=== PATIENT | female | born 1940 | race Caucasian/White ===

== ENCOUNTER 2020-08-27 11:55 | Inpatient (IN) | payer OTHER ==
[~2020-08-27] VITALS: Ht 165.1 cm; Wt 50.9 kg
[2020-08-27] MEDS ORDERED: TRAM50TA2 PO (12:09)
[2020-08-27] MEDS ORDERED: MORPHINE SULFATE 2 MG/1 ML DISP.SYRIN IV ONE ×2 (12:15→14:00)
[2020-08-27] MEDS ORDERED: IV NORMAL SALINE 1000 ML BAG IV ONE ×2 (12:15→18:15)
[2020-08-27] MEDS ORDERED: ONDANSETRON 4 MG/2 ML VIAL IV ONE ×2 (12:15→14:00)
[2020-08-27] MEDS ORDERED: ONDANSETRON 4 MG/2 ML VIAL ONE ×2 (12:17→14:09)
[2020-08-27] MEDS ORDERED: MORPHINE SULFATE 2 MG/1 ML DISP.SYRIN ONE ×2 (12:19→14:09)
[2020-08-27 13:29] LABS: BILIRUBIN,DIRECT 0.5 mg/dL (0.0-0.2); BILIRUBIN,TOTAL 1.1 mg/dL (0.2-1.0); TOTAL PROTEIN, SERUM 7.1 g/dL (6.4-8.2)
[2020-08-27 13:31] LABS: POTASSIUM 3.5 mmol/L (3.5-5.1)
[2020-08-27 13:55] LABS: BASOPHILS % (AUTO) 0.3 % (0.0-2.0); HEMATOCRIT 47.1 % (31.2-41.9); HEMOGLOBIN 14.5 g/dL (10.9-14.3); LYMPHOCYTES % (AUTO) 29.8 % (20.5-51.5); MEAN CORPUSCULAR HEMOGLOBIN 28.5 uug (24.7-32.8); MEAN CORPUSCULAR HGB CONC 31 g/dL (32.3-35.6); MEAN CORPUSCULAR VOLUME 92.8 fL (75.5-95.3); MONOCYTES # (AUTO) 0.7 K/uL (2.0-10.0); MONOCYTES % (AUTO) 4.4 % (0.0-11.0); NEUTROPHILS % (AUTO) 65.5 % (38.5-71.5); PLATELET COUNT (AUTO) 185 K/uL (179-408); RED BLOOD CELL COUNT(AUTO) 5.08 MIL/uL (3.63-4.92); WHITE BLOOD COUNT (AUTO) 16.7 K/uL (3.8-11.8)
--- NOTE | 2020-08-27 15:00 | NUR ---
[facility] AUTHORIZED THE PT TO BE ADMITTED HERE PER DR. ALMARAZ
--- NOTE | 2020-08-27 16:00 | NUR ---
DR. ALMARAZ LEFT A MESSAGE FOR DR. RIOS FOR UROLOGY CONSULT
--- NOTE | 2020-08-27 16:03 | NUR ---
ALBA WRIGHT, PT BROTHER CALLED AND GOT UPDATED.
[2020-08-27 16:11] LABS: *BILIRUBIN,URIN 1+ (NEGATIVE); *BLOOD, URINE 2+ (NEGATIVE); *CLARITY,URINE CLEAR (CLEAR); *COLOR,URINE YELLOW (YELLOW); *KETONES,URINE 4+ (NEGATIVE); LEUKOCYTE ESTERASE ,URINE NEGATIVE (NEGATIVE); NITRITE, URINE POSITIVE (NEGATIVE); PH,URINE 5.5 (5.0-8.0); UGLUCOSE 2+ (NEGATIVE)
--- NOTE | 2020-08-27 16:37 | NUR ---
DR MALIK CALLED BACK, TALKING TO ER MD, URO CONSULT.
[2020-08-27] MEDS ORDERED: CEFTRIAXONE 1 G in IV DEXTROSE 5% 50 ML IV STA (16:41)
[2020-08-27] MEDS ORDERED: KETOROLAC TROMETHAMINE 30 MG INJ IVP ONE (16:45)
[2020-08-27] MEDS ORDERED: KETOROLAC TROMETHAMINE 30 MG INJ ONE (16:53)
[2020-08-27] MEDS ORDERED: CEFTRIAXONE /D5W 50ML IVPB **ER PYXIS IV ONE (16:53)
[2020-08-27] MEDS ORDERED: ACETAMINOPHEN 325 MG TABLET PO PRN (18:15)
[2020-08-27] MEDS ORDERED: Z GUARD REMEDY PASTE 57 GM TUBE TOP PRN (18:15)
[2020-08-27] MEDS ORDERED: MAGNESIUM HYDROXIDE 30 ML LIQUID UDC PO PRN (18:15)
[2020-08-27] MEDS ORDERED: KETOROLAC TROMETHAMINE 15 MG INJ IM PRN (18:15)
[2020-08-27] MEDS ORDERED: VANCOMYCIN IV 1,000 MG in IV DEXTROSE 5% 250 ML IV SCH (18:45)
[2020-08-27] MEDS ORDERED: VANCOMYCIN IV 200 ML ONE (19:05)
[2020-08-27 20:13] LABS: BACTERIA,URINE FEW /HPF (NONE SEEN); SQUAMOUS EPITHELIAL CELL,UR FEW /HPF (NONE SEEN)
--- NOTE | 2020-08-27 20:47 | NUR ---
Patient will be going to room 309
--- NOTE | 2020-08-27 22:01 | NUR ---
Called and gave report to RN Will to admit patient to med-surg room 309.
--- NOTE | 2020-08-27 22:45 | NUR ---
ADMITTED PATIENT ON MED SURG FLOOR UNDER THE CARE OF DR. ZIMMERMAN. PATIENT ALERT ORIENTED ABLE TO MAKE NEEDS KNOW. PATIENT ASSISTED WITH TOILETING, NO COMPLAIN OF PAIN AT THIS TIME. CALL LIGHT WITHIN REACH.
--- NOTE | 2020-08-27 23:00 | NUR ---
Patient transported to [place] in stable condition.
[2020-08-27 23:24] VITALS: BP 109/70
[2020-08-27] MEDS: IV 1/2NS 1000 ML 1,000 ML IV PRN (23:33)
[2020-08-28 04:00] VITALS: BP 108/48
[2020-08-28] MEDS ORDERED: KETOROLAC TROMETHAMINE 30 MG INJ IM ONE (07:50)
[2020-08-28] MEDS ORDERED: ONDANSETRON 4 MG/2 ML VIAL IV ONE (07:50)
[2020-08-28] MEDS ORDERED: SEVOFLURANE 250 ML BOTTLE IH ONE (07:50)
[2020-08-28] MEDS ORDERED: ETOMIDATE 20 MG/10 ML VIAL MC ONE (07:50)
[2020-08-28] MEDS ORDERED: DEXAMETHASONE SOD PHOSPHATE 4 MG INJ IV ONE (07:50)
--- NOTE | 2020-08-28 08:00 | NUR ---
pt received awake, in her room, forgetful. IV NS running at 125cc/hour. side rails are up. Pt is reminded to use a call light when needs assistance. Pt is NPO.
[2020-08-28 08:04] LABS: BASOPHILS % (AUTO) 0.1 % (0.0-2.0); HEMATOCRIT 37.5 % (31.2-41.9); HEMOGLOBIN 12.4 g/dL (10.9-14.3); LYMPHOCYTES # (AUTO) 9.2 K/uL (20.0-40.0); MEAN CORPUSCULAR HEMOGLOBIN 29.2 uug (24.7-32.8); MEAN CORPUSCULAR HGB CONC 33 g/dL (32.3-35.6); MEAN CORPUSCULAR VOLUME 87.9 fL (75.5-95.3); MONOCYTES # (AUTO) 1.6 K/uL (2.0-10.0); NEUTROPHILS # (AUTO) 12.7 K/uL (1.8-8.9); NEUTROPHILS % (AUTO) 53.9 % (38.5-71.5); PLATELET COUNT (AUTO) 184 K/uL (179-408); RED BLOOD CELL COUNT(AUTO) 4.26 MIL/uL (3.63-4.92); WHITE BLOOD COUNT (AUTO) 23.6 K/uL (3.8-11.8)
[2020-08-28 08:10] LABS: BILIRUBIN,TOTAL 0.6 mg/dL (0.2-1.0); CREATININE 0.8 mg/dL (0.6-1.3); MAGNESIUM 1.7 mg/dL (1.8-2.4); POTASSIUM 3.7 mmol/L (3.5-5.1); TOTAL PROTEIN, SERUM 5.4 g/dL (6.4-8.2)
[2020-08-28] MEDS: MAGNESIUM SULFATE/D5W 100 ML IV SCH ×2 (10:53→18:38)
[2020-08-28] MEDS: IV 1/2NS 1000 ML 1,000 ML IV PRN (11:08)
[2020-08-28 11:54] VITALS: BP 111/57
--- NOTE | 2020-08-28 12:00 | NUR ---
Patient's IV site is noted to be leaking. Pt states it hurts when flushed. Unable to start a new IV, midline is requested.
--- NOTE | 2020-08-28 15:00 | NUR ---
Pt c/o generalized pain and overall discomfort and feeling "not well". Pt states she has pain "all over, including her back and abd." PRN Tarodol 15mg IM was given at 1435. Pt is noted to be resting in bed, dozing off, no distress. Medication was effective.
[2020-08-28] MEDS ORDERED: METHYLENE BLUE 50 MG/10 ML AMPUL (0.5%) ONE (15:07)
[2020-08-28] MEDS: ONDANSETRON 4 MG/2 ML VIAL IV PRN ×2 (15:22→22:47)
[2020-08-28 15:42] VITALS: BP 148/58
--- NOTE | 2020-08-28 16:00 | NUR ---
Pt is c/o nausea. PRN Zofran 4 mg IV was given at 1522. Pt states she feels somewhat better. prn was effective..
--- NOTE | 2020-08-28 16:05 | NUR ---
Patient picked up for surgery, no distress.
[2020-08-28] MEDS ORDERED: MIDAZOLAM HCL 2 MG/2 ML VIAL ONE (16:14)
[2020-08-28] MEDS ORDERED: FLUMAZENIL 0.5 MG/5 ML VIAL ONE (16:33)
[2020-08-28] MEDS ORDERED: CEFTRIAXONE 1 G in IV DEXTROSE 5% 50 ML IV SCH (17:00)
--- NOTE | 2020-08-28 18:20 | NUR ---
pt returned from surgery. Pt is calm, appears asleep. IV 1/2 NS running at 125cc/hr. Report received. No distress. vs stable.
--- NOTE | 2020-08-28 19:00 | NUR ---
Rec'd pt. in bed, anxious to get out of the bed to go to bathroom. Assisted pt., voided freely well. Kept dry and clean. Midline on left upper arm patent and intact. IV of 1/2 NS infusing at 125 ml/hr. Safety measures implemented. No complaints presented. VS stable. Monitored closely for safety and comfort.
[2020-08-28 20:00] VITALS: BP 140/69
--- NOTE | 2020-08-28 22:41 | NUR ---
Pt. was found moaning, groaning and stated feeling of nausea. Medicated with Toradol and Zofran as ordered.
[2020-08-28] MEDS: KETOROLAC TROMETHAMINE 15 MG INJ IVP PRN (22:47)
--- NOTE | 2020-08-28 23:47 | NUR ---
Pt. resting in bed. No complaints presented. No acute distress.
[2020-08-29] MEDS: IV 1/2NS 1000 ML 1,000 ML IV PRN ×3 (00:59→17:44)
[2020-08-29 04:00] VITALS: BP 150/71
--- NOTE | 2020-08-29 07:30 | NUR ---
pt resting in bed, IVF infusing. on room air. bed alarm on, bed in low and locked position, fall precautions in place.
--- NOTE | 2020-08-29 07:50 | NUR ---
SOUND ASLEEP IN BED, 2RAILS UP ON BOTH SIDES, BED ALARM ON, CONTINUE TO MONITOR CONDITION,
[2020-08-29 08:00] VITALS: BP 149/79
[2020-08-29 08:32] LABS: BASOPHILS % (AUTO) 0.2 % (0.0-2.0); EOSINOPHILS % (AUTO) 0.1 % (0.0-7.0); HEMATOCRIT 41.5 % (31.2-41.9); HEMOGLOBIN 13.4 g/dL (10.9-14.3); LYMPHOCYTES # (AUTO) 8.4 K/uL (20.0-40.0); LYMPHOCYTES % (AUTO) 37.4 % (20.5-51.5); MEAN CORPUSCULAR HEMOGLOBIN 28.4 uug (24.7-32.8); MEAN CORPUSCULAR HGB CONC 32 g/dL (32.3-35.6); MEAN CORPUSCULAR VOLUME 87.7 fL (75.5-95.3); MONOCYTES # (AUTO) 1.2 K/uL (2.0-10.0); MONOCYTES % (AUTO) 5.3 % (0.0-11.0); NEUTROPHILS # (AUTO) 12.8 K/uL (1.8-8.9); PLATELET COUNT (AUTO) 196 K/uL (179-408); RED BLOOD CELL COUNT(AUTO) 4.73 MIL/uL (3.63-4.92); WHITE BLOOD COUNT (AUTO) 22.4 K/uL (3.8-11.8)
[2020-08-29] MEDS: ONDANSETRON 4 MG/2 ML VIAL IV PRN ×2 (09:57→17:38)
[2020-08-29] MEDS: KETOROLAC TROMETHAMINE 15 MG INJ IVP PRN (09:58)
--- NOTE | 2020-08-29 10:00 | NUR ---
Complained of abdominal pain and nausea. Toradol and Zofran given as ordered, wit relief
[2020-08-29 11:00] VITALS: BP 153/83
[2020-08-29] MEDS ORDERED: PIPERACILLIN SODIUM/TAZOBACTAM 4.5 G in IV DEXTROSE 5% 50 ML IV ONE (12:00)
--- NOTE | 2020-08-29 14:00 | NUR ---
resting in bed, denies pain
[2020-08-29 16:15] VITALS: BP 139/70
--- NOTE | 2020-08-29 18:17 | NUR ---
complained of nausea, zofran given with relief. pt still refused to eat dinner, pt has poor intake. IVF infusing. Fall precautions in place, bed in low and locked position, bed alarm on, call light within reach.
[2020-08-29] MEDS: PIPERACILLIN SODIUM/TAZOBACTAM 3.37 G in IV DEXTROSE 5% 100 ML IV SCH (20:56)
[2020-08-29 21:11] VITALS: BP 135/72
[2020-08-30] MEDS: ONDANSETRON 4 MG/2 ML VIAL IV PRN (03:13)
[2020-08-30] MEDS: KETOROLAC TROMETHAMINE 15 MG INJ IVP PRN (03:13)
[2020-08-30] MEDS: PIPERACILLIN SODIUM/TAZOBACTAM 3.37 G in IV DEXTROSE 5% 100 ML IV SCH ×3 (04:58→20:09)
[2020-08-30 06:08] VITALS: BP 148/83
--- NOTE | 2020-08-30 07:30 | NUR ---
Awake, alert, oriented x3, verbalized feeling better. Assisted to the bathroom then back to bed. Call light with in reach, instructed to use. Bed alarm on. IVF infusing. Encourage po intake
[2020-08-30 08:30] LABS: BASOPHILS # (AUTO) 0.1 K/uL (0.0-8.0); BASOPHILS % (AUTO) 0.6 % (0.0-2.0); EOSINOPHILS % (AUTO) 0.2 % (0.0-7.0); HEMATOCRIT 43.4 % (31.2-41.9); HEMOGLOBIN 14.4 g/dL (10.9-14.3); LYMPHOCYTES # (AUTO) 13.2 K/uL (20.0-40.0); LYMPHOCYTES % (AUTO) 58.6 % (20.5-51.5); MEAN CORPUSCULAR HEMOGLOBIN 28.6 uug (24.7-32.8); MEAN CORPUSCULAR HGB CONC 33 g/dL (32.3-35.6); MEAN CORPUSCULAR VOLUME 86.5 fL (75.5-95.3); MONOCYTES % (AUTO) 4.5 % (0.0-11.0); NEUTROPHILS # (AUTO) 8.1 K/uL (1.8-8.9); NEUTROPHILS % (AUTO) 36.1 % (38.5-71.5); PLATELET COUNT (AUTO) 201 K/uL (179-408); RED BLOOD CELL COUNT(AUTO) 5.02 MIL/uL (3.63-4.92); WHITE BLOOD COUNT (AUTO) 22.5 K/uL (3.8-11.8)
[2020-08-30] MEDS: KETOROLAC TROMETHAMINE 15 MG INJ IVP SCH ×3 (09:16→21:37)
[2020-08-30] MEDS: IV 1/2NS 1000 ML 1,000 ML IV PRN ×2 (11:40→21:00)
[2020-08-30 12:00] VITALS: BP 120/71
--- NOTE | 2020-08-30 12:30 | NUR ---
Diet advanced to full liquid but patient only had a spoon and still refused to eat. Encouraged to increase po intake.
[2020-08-30 16:00] VITALS: BP 130/68
[2020-08-30] MEDS: PANTOPRAZOLE SODIUM 40 MG TABLET.DR PO SCH (17:17)
--- NOTE | 2020-08-30 18:40 | NUR ---
Pain controlled. Still refused to eat. IVF Infusing.
--- NOTE | 2020-08-30 19:30 | NUR ---
RECEIVED PT AWAKE, ALERT AND ORIENTEDX4. PT IN NO ACUTE DISTRESS. IV INTACT. SAFETY AND COMFORT PROVIDED. WILL CONTINUE TO MONITOR.
[2020-08-30 20:53] VITALS: BP 124/57
[2020-08-31] MEDS: KETOROLAC TROMETHAMINE 15 MG INJ IVP SCH ×3 (03:04→15:26)
[2020-08-31] MEDS: PIPERACILLIN SODIUM/TAZOBACTAM 3.37 G in IV DEXTROSE 5% 100 ML IV SCH ×2 (03:04→12:04)
[2020-08-31] MEDS: IV 1/2NS 1000 ML 1,000 ML IV PRN ×2 (04:18→12:20)
[2020-08-31 04:28] VITALS: BP 111/51
--- NOTE | 2020-08-31 06:16 | NUR ---
PT SLEPT INTERMITTENTLY. PT IN NO ACUTE DISTRESS. PRESCRIBED MEDICATION GIVEN AND PT TOLERATED IT WELL. SAFETY AND COMFORT PROVIDED. ALL NEEDS ARE MET. WILL ENDORSE TO INCOMING NURSE FOR CONTINUITY OF CARE.
[2020-08-31] MEDS: PANTOPRAZOLE SODIUM 40 MG TABLET.DR PO SCH ×2 (06:25→16:23)
[2020-08-31 07:59] VITALS: BP 99/54
[2020-08-31 08:42] LABS: BASOPHILS # (AUTO) 0.1 K/uL (0.0-8.0); BASOPHILS % (AUTO) 0.4 % (0.0-2.0); EOSINOPHILS # (AUTO) 0.1 K/uL (0.0-0.7); EOSINOPHILS % (AUTO) 0.7 % (0.0-7.0); HEMATOCRIT 38.5 % (31.2-41.9); HEMOGLOBIN 12.7 g/dL (10.9-14.3); LYMPHOCYTES # (AUTO) 11.6 K/uL (20.0-40.0); LYMPHOCYTES % (AUTO) 72.9 % (20.5-51.5); MEAN CORPUSCULAR HEMOGLOBIN 28.8 uug (24.7-32.8); MEAN CORPUSCULAR HGB CONC 33 g/dL (32.3-35.6); MEAN CORPUSCULAR VOLUME 86.9 fL (75.5-95.3); MONOCYTES # (AUTO) 0.8 K/uL (2.0-10.0); MONOCYTES % (AUTO) 4.7 % (0.0-11.0); NEUTROPHILS # (AUTO) 3.4 K/uL (1.8-8.9); NEUTROPHILS % (AUTO) 21.3 % (38.5-71.5); PLATELET COUNT (AUTO) 196 K/uL (179-408); RED BLOOD CELL COUNT(AUTO) 4.43 MIL/uL (3.63-4.92)
--- NOTE | 2020-08-31 08:46 | NUR ---
[facility] STATED PATIENT MIGHT BE GOING HOME TOMORROW.
--- NOTE | 2020-08-31 08:48 | NUR ---
ERROR WRONG PATIENT
[2020-08-31 11:51] VITALS: BP 108/59
--- NOTE | 2020-08-31 14:25 | NUR ---
PATIENT IS FOR DISCHARGE TODAY AWAITING FOR [employer] TO COMPLETE APPOINTMENT WITH [facility] PER DR JAUREGUI
[2020-08-31 15:09] LABS: BAND % (MANUAL) 1 % (0-10); EOSINOPHILS % (MANUAL) 1 % (0-8); LYMPHOCYTES % (MANUAL) 63 % (20-40); MONOCYTES % (MANUAL) 2 % (2-10); NEUTROPHILS % (MANUAL) 18 % (42-75); REACTIVE LYMPHOCYTES 15 % (0-0)
[2020-08-31 15:26] VITALS: BP 131/65
--- NOTE | 2020-08-31 15:35 | NUR ---
PER THE [employer] HE CALLED [facility] AND PER [facility] THEY WILL CALL HER TO SCHEDULE THE APPOINTMENT WITH DR JANE PONCE PATIENT NOTIFIED STATED THAT SHE KNOWS DR PONCE.PATIETS BROTHER MICHAEL WILL BE ABLE TO PICK HER UP AT ABOUT 1630
--- NOTE | 2020-08-31 17:12 | NUR ---
PATIENT DISCHARGED PICKED UP BY HER BROTHER MICHAEL IN SATISFACTORY CONDITION WITH DISCHARGE INSTUCTIONS AND PRESCRIPTIONS AND SHE WAS INSTRUCTED THAT [facility] WILL CALL HER TO SET UP NAN APPOINTMENTB WITH HER UROLOGIST DR JANE PONCE AND TO CONTINUE HER MEDICATIONS ORDERED AND SHE EXPRESSED UNDERSTANDING.
== END 2020-08-31 17:12 | disposition home or self-care (01) | DRG 854 ==
LOC: ER 11:55 → TRANSITION 15:47 → MEDSURG3 22:24
PROVIDERS: ADMIT Internal Medicine; ATTEND Internal Medicine
PROC: 0T778DZ Dilation of Left Ureter with Intraluminal Device, Via Natural or Artificial Opening Endoscopic (ICD-10-PCS; principal; 2020-08-28)
PROC: BT1FZZZ Fluoroscopy of Left Kidney, Ureter and Bladder (ICD-10-PCS; principal; 2020-08-28)
PROC: 05H933Z Insertion of Infusion Device into Right Brachial Vein, Percutaneous Approach (ICD-10-PCS; 2020-08-28)
DX: A41.9 Sepsis, unspecified organism (principal); N13.6 Pyonephrosis; E87.1 Hypo-osmolality and hyponatremia; M48.54XA Collapsed vertebra, not elsewhere classified, thoracic region, initial encounter for fracture; N39.0 Urinary tract infection, site not specified; Z85.3 Personal history of malignant neoplasm of breast; Z20.828 Contact with and (suspected) exposure to other viral communicable diseases; F03.90 Unspecified dementia, unspecified severity, without behavioral disturbance, psychotic disturbance, mood disturbance, and anxiety; X50.0XXA Overexertion from strenuous movement or load, initial encounter; Z90.49 Acquired absence of other specified parts of digestive tract; Z90.12 Acquired absence of left breast and nipple
CPT/HCPCS: 36415; 70030-TC; 71045; 83605; 83690; 83735; 84100; 85025; 85730; 87077; 87086; 93005; A4663; C1713; C1758; C1769; G0378; J0696; J1100; J1885; J1956; J2250; J2270; J2405; J2543; J3370; J3475; J3490; J7042; J7060; U0003